=== PATIENT | female | born 1980 | race Hispanic/Latino ===

== ENCOUNTER 2022-11-15 15:19 | Emergency (ER) | payer OTHER ==
[2022-11-15] MEDS ORDERED: Metoclopramide HCl 10 MG/2 ML VIAL ONE (17:17)
[2022-11-15] MEDS ORDERED: diphenhydrAMINE 50 MG/ML VIAL ONE (17:18)
== END 2022-11-15 20:04 | disposition home or self-care (01) ==
LOC: ERS 15:19
DX: R51.9 Headache, unspecified (principal); F17.290 Nicotine dependence, other tobacco product, uncomplicated
CPT/HCPCS: 96365; 96366; 96375; J1200; J2765